=== PATIENT | male | born 1990 | race African-American/Black ===

== ENCOUNTER 2016-09-09 23:30 | Emergency (ER) | payer MEDICAID ==
[~2016-09-09] VITALS: Ht 167.6 cm; Wt 54.0 kg
[2016-09-09 23:45] VITALS: BP 100/74
== END 2016-09-10 00:15 | disposition left against medical advice (07) ==
LOC: ER 23:30
DX: R10.9 Unspecified abdominal pain (principal)

== ENCOUNTER 2018-09-05 21:40 | Emergency (ER) | payer OTHER | END 2018-09-05 23:00 | disposition left against medical advice (07) | LOC: ER 21:40 | DX: Z53.21 Procedure and treatment not carried out due to patient leaving prior to being seen by health care provider (principal) ==